=== PATIENT | male | born 1945 | race Caucasian/White ===

== ENCOUNTER 2017-08-21 10:23 | Inpatient (IN) | payer OTHER ==
[~2017-08-21] VITALS: Ht 167.6 cm; Wt 62.2 kg
[~2017-08-21 10:23] MED LIST: LEVE100S10 PO
[2017-08-21] MEDS ORDERED: ALBUT/IPRATROP 3MG/0.5MG NEB 3 ML VIAL INH STA (10:50)
[2017-08-21] MEDS ORDERED: SODIUM CHLORIDE 0.9% 500ML 500 ML IV STA ×2 (10:50→11:58)
[2017-08-21] MEDS ORDERED: PIPERACILLIN/TAZOBACTAM 4.5 GM/100ML D5W IV STA (10:50)
[2017-08-21] MEDS ORDERED: DEXTCAP23 PO (11:00)
--- NOTE | 2017-08-21 11:39 | DIAGNOSTIC IMAGING REPORT ---
CHEST ONE VIEW PORTABLE CLINICAL HISTORY: EVALUATE RESPIRATORY DISTRESS.DYSPNEA dyspnea COMPARISON STUDY: 04/11/2016 FINDINGS: Interval development of bibasilar parenchymal infiltrates. Moderate increase in cardiac size. A component of congestive failure may be present. Upper lungs are clear. Baseline emphysematous changes similar. IMPRESSION: Bibasilar parenchymal infiltrates versus components of congestive failure The above report was generated using voice recognition software. It may contain grammatical, syntax or spelling errors. Electronically signed by: Sedrick Thomas M.D. 08/21/2017 11:37 AM Dictated Date/Time: 08/21/2017 11:36 AM
[2017-08-21 11:42] LABS: BASO % 0.1 %; BASO ABS # 0.01 K/uL (0-0.2); HEMATOCRIT 43.7 % (42-52); HEMOGLOBIN 14.9 g/dL (14.0-18.0); IG# 0.02 K/uL (0.00-0.02); LYMPH % 8.2 %; LYMPH ABS # 0.79 K/uL (1.2-3.4); MEAN CELL VOLUME 89.5 fL (80-100); MEAN CORPUSCULAR HEMOGLOBIN 30.5 pg (25-34); MEAN CORPUSCULAR HGB CONC 34.1 g/dl (32-36); MEAN PLATELET VOLUME 10.3 fL (7.4-10.4); MONO % 7.8 %; MONO ABS # 0.75 K/uL (0.11-0.59); NEUT % 83.7 %; NEUT ABS # 8.08 K/uL (1.4-6.5); PLATELET COUNT 166 K/uL (130-400); RED CELL DISTRIBUTION WIDTH CV 13.5 % (11.5-14.5); RED CELL DISTRIBUTION WIDTH SD 44.1 fL (36.4-46.3); WHITE BLOOD COUNT 9.65 K/uL (4.8-10.8)
[2017-08-21 11:49] LABS: PTT PATIENT 24.8 SECONDS (21.0-31.0)
[2017-08-21 11:52] LABS: CREATININE 1.2 mg/dl (0.60-1.40)
[2017-08-21 11:53] LABS: ALBUMIN 3.5 gm/dl (3.4-5.0); CALCIUM 8.5 mg/dl (8.5-10.1); POTASSIUM 5.1 mmol/L (3.5-5.1)
[2017-08-21 12:15] LABS: TOTAL PROTEIN 7.4 gm/dl (6.4-8.2)
[2017-08-21] MEDS ORDERED: OPTIRAY 320 IV PRN (12:15)
[2017-08-21 12:31] LABS: INFLUENZA A PCR Neg for Influ A (NEG); INFLUENZA B PCR Neg for Influ B (NEG)
--- NOTE | 2017-08-21 12:52 | DIAGNOSTIC IMAGING REPORT ---
(CHEST FOR PE) ANGIO WITH CT DOSE: 574.33 mGy.cm HISTORY: Chest pain dyspnea TECHNIQUE: Multiaxial CT images of the chest were performed following the intravenous administration of contrast to evaluate the pulmonary arteries. Maximal intensity projection images were also obtained. A dose lowering technique was utilized adhering to the principles of ALARA. COMPARISON STUDY: None. FINDINGS: Thoracic aorta is unremarkable in overall caliber. Pulmonary arterial vasculature enhances appropriately. There are bilateral pleural effusions. Pulmonary vasculature is prominent. There are findings of mild bibasilar atelectatic change. IMPRESSION: 1. Study is negative for pulmonary most. 2. Cardiomegaly with bilateral pleural effusions. 3. The appearance is consistent with that of congestive failure The above report was generated using voice recognition software. It may contain grammatical, syntax or spelling errors. Electronically signed by: Sedrick Thomas M.D. 08/21/2017 12:51 PM Dictated Date/Time: 08/21/2017 12:49 PM
[2017-08-21] MEDS ORDERED: METHYLPREDNISOLONE 125 MG VIAL IV STA (13:05)
[2017-08-21] MEDS ORDERED: NITROGLYCERIN 2% OINTMENT 30GM TUBE EXT ONE (13:15)
--- NOTE | 2017-08-21 13:43 | EMERGENCY ROOM VISIT NOTE ---
History Report prepared by Nelsy: Daryl Phillips Under the Supervision of: Dr. Calixto Black M.D. First contact with patient: 10:48 Chief Complaint: SHORTNESS OF BREATH Stated Complaint: COUGH,SOB,CAN'T BREATHE RIGHT History of Present Illness The patient is a 72 year old male who presents to the Emergency Room with complaints of constant shortness of breath beginning last night. The patient's brother states the patient developed a chest cold last evening. The brother notes the patient's shortness of breath worsens upon exertion. He states he gave the patient medication for his cough earlier, but it did not help. The brother reports the patient is more fatigued than normal and will fall asleep very quickly. He notes the patient also has swelling in his legs. The brother states the patient has a history of a seizure two years ago and will occasionally drool. He reports the patient has also been more fatigued. The brother notes the patient is very active at home. He denies discomfort when asked, vomiting, urinary symptoms, a history of lung disease, a history of blood clots in the legs or lungs, wearing oxygen at home at home, being exposed to other sick people, and taking daily medication. The brother states the patient does not have a PCP. The history was obtained by the patient's brother because the patient has mild MR. Source of History: family (brother) Onset: last night Quality: other (SOB) Timing: constant Modifying Factors (Worsening): exertion Associated Symptoms: + cough, + fatigue, No vomiting, No urinary symptoms Note: Associated symptoms: swelling in legs Review of Systems See HPI for pertinent positives & negatives. A total of 10 systems reviewed and were otherwise negative. Past Medical & Surgical Medical Problems: (1) CHF (congestive heart failure) (2) Mental retardation (3) Seizure Family History Patient reports no known family medical history. Social History Smoking Status: Never Smoker Drug Use: none Marital Status: single Housing Status: lives with family Occupation Status: disabled Current/Historical Medications Scheduled PRN Dextromethorphan-Guaifenesin (Coricidin Hbp Chest Conge), 1 CAP PO UD PRN for CONGESTION Allergies Coded Allergies: No Known Allergies (Unverified , 08/21/17) Physical Exam Vital Signs Date Time Temp Pulse Resp B/P (MAP) Pulse Ox O2 Delivery O2 Flow Rate FiO2 08/21/17 16:12 91 22 136/94 97 Room Air 08/21/17 15:00 86 22 148/94 97 Room Air 08/21/17 14:11 102 23 92 Nasal Cannula 2.0 08/21/17 14:01 133/95 08/21/17 13:41 97 18 96 Nasal Cannula 2.0 08/21/17 13:36 96 22 96 Nasal Cannula 2.0 08/21/17 13:31 135/107 08/21/17 13:26 99 20 96 08/21/17 13:01 143/101 08/21/17 12:56 95 20 95 08/21/17 12:51 156/103 08/21/17 12:06 91 15 99 Nasal Cannula 2.0 08/21/17 12:01 134/101 08/21/17 11:53 93 16 100 08/21/17 11:35 146/94 08/21/17 11:23 119 24 83 08/21/17 11:23 93 Nasal Cannula 2.0 08/21/17 11:10 98 Room Air 08/21/17 10:53 113 28 99 08/21/17 10:45 109 08/21/17 10:28 36.4 97 20 120/81 98 Room Air Physical Exam GENERAL: Patient is in no acute distress. HEENT: No acute trauma, normocephalic atraumatic, mucous membranes moist, no nasal congestion, no scleral icterus. NECK: No stridor, no adenopathy, no meningismus, trachea is midline. LUNGS: Slight wheezing heard. Decreased breath sounds on the right. No respiratory distress. HEART: 3/6 systolic murmur with mild tachycardia. Somewhat Irregular rhythm. ABDOMEN: Soft but distended. Large ventral hernia that is non-tender. No peritonitis. EXTREMITIES: No cyanosis. Moderate bilateral pitting edema, full range of motion of all the joints without pain or difficulty, no signs for acute trauma. 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 Does move all extremities. Cooperative on exam. SKIN: No rash, no jaundice, no diaphoresis. Medical Decision & Procedures ER Provider Diagnostic Interpretation: Radiology results as stated below per my review and radiologist interpretation: CHEST ONE VIEW PORTABLE CLINICAL HISTORY: EVALUATE RESPIRATORY DISTRESS.DYSPNEA dyspnea COMPARISON STUDY: 04/11/2016 FINDINGS: Interval development of bibasilar parenchymal infiltrates. Moderate increase in cardiac size. A component of congestive failure may be present. Upper lungs are clear. Baseline emphysematous changes similar. IMPRESSION: Bibasilar parenchymal infiltrates versus components of congestive failure The above report was generated using voice recognition software. It may contain grammatical, syntax or spelling errors. Electronically signed by: Sedrick Thomas M.D. 08/21/2017 11:37 AM Dictated Date/Time: 08/21/2017 11:36 AM (CHEST FOR PE) ANGIO WITH CT DOSE: 574.33 mGy.cm HISTORY: Chest pain dyspnea TECHNIQUE: Multiaxial CT images of the chest were performed following the intravenous administration of contrast to evaluate the pulmonary arteries. Maximal intensity projection images were also obtained. A dose lowering technique was utilized adhering to the principles of ALARA. COMPARISON STUDY: None. FINDINGS: Thoracic aorta is unremarkable in overall caliber. Pulmonary arterial vasculature enhances appropriately. There are bilateral pleural effusions. Pulmonary vasculature is prominent. There are findings of mild bibasilar atelectatic change. IMPRESSION: 1. Study is negative for pulmonary most. 2. Cardiomegaly with bilateral pleural effusions. 3. The appearance is consistent with that of congestive failure The above report was generated using voice recognition software. It may contain grammatical, syntax or spelling errors. Electronically signed by: Sedrick Thomas M.D. 08/21/2017 12:51 PM Dictated Date/Time: 08/21/2017 12:49 PM Laboratory Results 08/21/17 11:10 Red Blood Count 4.88, Mean Corpuscular Volume 89.5, Mean Corpuscular Hemoglobin 30.5, Mean Corpuscular Hemoglobin Concent 34.1, Mean Platelet Volume 10.3, Neutrophils (%) (Auto) 83.7, Lymphocytes (%) (Auto) 8.2, Monocytes (%) (Auto) 7.8, Eosinophils (%) (Auto) 0.0, Basophils (%) (Auto) 0.1, Neutrophils # (Auto) 8.08, Lymphocytes # (Auto) 0.79, Monocytes # (Auto) 0.75, Eosinophils # (Auto) 0.00, Basophils # (Auto) 0.01 08/21/17 14:46 Test 08/21/17 11:10 08/21/17 11:36 08/21/17 11:45 08/21/17 14:05 White Blood Count 9.65 K/uL (4.8-10.8) Red Blood Count 4.88 M/uL (4.7-6.1) Hemoglobin 14.9 g/dL (14.0-18.0) Hematocrit 43.7 % (42-52) Mean Corpuscular Volume 89.5 fL (80-100) Mean Corpuscular Hemoglobin 30.5 pg (25-34) Mean Corpuscular Hemoglobin Concent 34.1 g/dl (32-36) Platelet Count 166 K/uL (130-400) Mean Platelet Volume 10.3 fL (7.4-10.4) Neutrophils (%) (Auto) 83.7 % Lymphocytes (%) (Auto) 8.2 % Monocytes (%) (Auto) 7.8 % Eosinophils (%) (Auto) 0.0 % Basophils (%) (Auto) 0.1 % Neutrophils # (Auto) 8.08 K/uL (1.4-6.5) Lymphocytes # (Auto) 0.79 K/uL (1.2-3.4) Monocytes # (Auto) 0.75 K/uL (0.11-0.59) Eosinophils # (Auto) 0.00 K/uL (0-0.5) Basophils # (Auto) 0.01 K/uL (0-0.2) RDW Standard Deviation 44.1 fL (36.4-46.3) RDW Coefficient of Variation 13.5 % (11.5-14.5) Immature Granulocyte % (Auto) 0.2 % Immature Granulocyte # (Auto) 0.02 K/uL (0.00-0.02) Prothrombin Time 11.0 SECONDS (9.0-12.0) Prothromb Time International Ratio 1.0 (0.9-1.1) Activated Partial Thromboplast Time 24.8 SECONDS (21.0-31.0) Partial Thromboplastin Ratio 1.0 Lactic Acid Level 3.7 mmol/L (0.4-2.0) Magnesium Level 2.2 mg/dl (1.8-2.4) Total Bilirubin 1.8 mg/dl (0.2-1) Aspartate Amino Transf (AST/SGOT) 70 U/L (15-37) Alanine Aminotransferase (ALT/SGPT) 83 U/L (12-78) Alkaline Phosphatase 180 U/L (45-117) Troponin I 0.034 ng/ml (0-0.045) Pro-B-Type Natriuretic Peptide 53285 pg/ml (0-900) Total Protein 7.4 gm/dl (6.4-8.2) Albumin 3.5 gm/dl (3.4-5.0) Globulin 3.9 gm/dl (2.5-4.0) Albumin/Globulin Ratio 0.9 (0.9-2) Thyroid Stimulating Hormone (TSH) 1.650 uIu/ml (0.300-4.500) Free Thyroxine 1.49 ng/dl (0.80-1.60) Chemistry Specimen Hemolysis Influenza Type A (RT-PCR) Neg for Influ A (NEG) Influenza Type B (RT-PCR) Neg for Influ B (NEG) Urine Color DK YELLOW Urine Appearance CLEAR (CLEAR) Urine pH 5.0 (4.5-7.5) Urine Specific [place] 1.026 (1.000-1.030) Urine Protein 1+ (NEG) Urine Glucose (UA) TRACE (NEG) Urine Ketones NEG (NEG) Urine Occult Blood NEG (NEG) Urine Nitrite NEG (NEG) Urine Bilirubin NEG (NEG) Urine Urobilinogen NEG (NEG) Urine Leukocyte Esterase NEG (NEG) Urine WBC (Auto) 1-5 /hpf (0-5) Urine RBC (Auto) 0-4 /hpf (0-4) Urine Hyaline Casts (Auto) 1-5 /lpf (0-5) Urine Epithelial Cells (Auto) 10-20 /lpf (0-5) Urine Bacteria (Auto) NEG (NEG) Test 08/21/17 14:46 08/21/17 14:50 Anion Gap 7.0 mmol/L (3-11) Est Creatinine Clear Calc Drug Dose 47.6 ml/min Estimated GFR () 70.3 Estimated GFR (Non- 60.7 BUN/Creatinine Ratio 14.9 (10-20) Osmolality 277 mOsm/kg (280-300) Calcium Level 8.0 mg/dl (8.5-10.1) Ammonia < 10.0 umol/L (11-32) Laboratory results reviewed by me. Medications Administered Medications (Trade) Dose Ordered Sig/Landy Route Start Time Stop Time Status Last Admin Dose Admin Albuterol/ Ipratropium (Duoneb) 3 ml NOW STAT INH 08/21/17 10:50 08/21/17 10:57 DC 08/21/17 11:11 3 ML Sodium Chloride 500 ml @ 999 mls/hr Q31M STAT IV 08/21/17 10:50 08/21/17 11:20 DC 08/21/17 11:17 999 MLS/HR Piperacillin Sod/ Tazobactam Sod (Zosyn Iv) 4.5 gm NOW STAT IV 08/21/17 10:50 08/21/17 10:57 DC 08/21/17 11:37 4.5 GM Sodium Chloride 500 ml @ 999 mls/hr Q31M STAT IV 08/21/17 11:58 08/21/17 12:28 DC 08/21/17 12:11 999 MLS/HR Methylprednisolone Sodium Succinate (Solu-Medrol IV) 125 mg NOW STAT IV 08/21/17 13:05 08/21/17 13:06 DC 08/21/17 13:24 125 MG Nitroglycerin (Nitroglycerin 2% Oint) 1 inch NOW ONCE EXT 08/21/17 13:15 08/21/17 13:16 DC 08/21/17 13:23 1 INCH Furosemide (Lasix Inj) 40 mg NOW STAT IV 08/21/17 13:47 08/21/17 13:48 DC 08/21/17 13:52 40 MG ECG Per My Interpretation Indication: SOB/dyspnea Rate (beats per minute): 100 Rhythm: atrial fibrillation Findings: PVC, RBBB (incomplete), other (No ST elevation. Nonspecific ST flattening diffusely.) Comparison ECG Date: 04/11/16 Change: Atrial fibrillation is new. ED Course 1048: The patient was evaluated in room C03. A complete history and physical exam was performed. 1050: Ordered Zosyn 4.5gm IV, Sodium Chloride 500 ml @ 999 mls/hr IV, Albuterol/ Ipratropium 3ml INH 1158: Ordered Sodium Chloride 500 ml @ 999 mls/hr IV 1203: I reevaluated the patient and updated the family about the patient's current results. I discussed the need evaluation by the hospitalist. The family agreed with the treatment plan and verbalized understanding. 1247: I discussed the patient's case with Dr. Gregory, [facility] Hospitalist. The patient will be evaluated for further management and care. 1303: I reevaluated the patient. He is still feeling well but still wheezing. 1305: Ordered Solu-Medrol 125 mg IV 1315: Ordered Nitroglycerin 1in EXT 1347: Ordered Furosemide 40mg IV 1402: Further discussion was made with Dr. Gregory about the patient's case. He requested I order an ammonia level. Medical Decision The patient is a 72 year old male who presents to the ED with complaints of shortness of breath. Differential diagnoses considered include sepsis or bacteremia, pneumonia or influenza, CHF, anemia, bronchitis, liver or renal failure, DVT or PE, electrolyte imbalance. There is no leukocytosis or concerning anemia. Renal panel testing shows a low sodium at 125. No kidney failure. No evidence for urine infection by our testing, blood cultures are pending. Chest film shows what looks to be possibly atelectasis or pneumonia at the bases, no pneumothorax. EKG shows A. fib, this is a new finding for the patient. No acute ischemic change. Cardiac enzyme testing 1 is not consistent with acute cardiac injury. Lactic acid level was elevated at 3.7, this could be consistent with infection/sepsis. There were some liver enzyme elevations. A chest CT was done, there was no PE, there was some atelectasis and some pleural fluid noted. BNP was elevated consistent with fluid overload. Influenza testing was negative. The patient presents with a change in mental status and cough. I was concerned for sepsis. He received IV Zosyn, he was given IV saline. Once the findings of potential fluid overload were noted, the patient was given Nitropaste and IV Lasix. He received a DuoNeb because of the wheezing, he received IV Solu- Medrol. The patient requires a hospital stay. He appears to be in A. fib which is new, he may have pneumonia or bronchitis. He does appear to be fluid overloaded. He has had a change in mental status, his lactic acid is elevated. Further care and workup is warranted. I spoke to the patient's brother, I talked with case management. The on-call hospitalist was consulted. Medication Reconcilliation Current Medication List: was personally reviewed by me Blood Pressure Screening Patient's blood pressure: Elevated blood pressure Monitored by hospitalist. Consults Time Called: 1204 Consulting Physician: Dr. Gregory, [facility] Hospitalist Returned Call: [phone] I discussed the patient's case with Dr. Gregory [facility] Hospitalist. The patient will be evaluated for further management and care. 1402: Further discussion was made with Dr. Gregory about the patient's case. He requested I order an ammonia level. Impression Primary Impression: Pneumonia Additional Impressions: Change in mental status A-fib Pleural effusion Hyponatremia Critical Care I have personally spent greater than 35 minutes of critical care time in the direct management of this patient. This includes bedside care, interpretation of diagnostic studies, and testing, discussion with consultants, patient, and family members, and other required patient management activities. This 35 minutes is in excess of all separately billable procedures. Scribe Attestation The scribe's documentation has been prepared under my direction and personally reviewed by me in its entirety. I confirm that the note above accurately reflects all work, treatment, procedures, and medical decision making performed by me. Departure Information Dispostion Being Evaluated By Hospitalist Referrals No Doctor, Assigned (PCP) Patient Instructions My [facility] Problem Qualifiers
[2017-08-21] MEDS ORDERED: FUROSEMIDE 40 MG/4 ML VIAL IV STA (13:47)
[2017-08-21] MEDS ORDERED: METOPROLOL TARTRATE 1 MG/ML VIAL IV PRN (14:30)
[2017-08-21] MEDS ORDERED: NITROGLYCERIN 0.4 MG SL PER TAB CHARGE SL PRN (14:30)
[2017-08-21] MEDS ORDERED: ACETAMINOPHEN 325 MG TAB PO PRN (14:30)
[2017-08-21] MEDS ORDERED: ONDANSETRON INJ 2 MG/ML 2 ML VIAL IV PRN (14:30)
[2017-08-21] MEDS ORDERED: ALUMINUM/MAGNESIUM/SIMETH (MAALOX MAX) 30 ML UDC PO PRN (14:30)
[2017-08-21] MEDS ORDERED: HydrALAZINE HCL 20 MG/ML VIAL IV. PRN (14:30)
[2017-08-21] MEDS ORDERED: MoRPHine SULFATE 2 MG/ML CARP IV PRN (14:30)
[2017-08-21] MEDS ORDERED: MAGNESIUM HYDROXIDE SUSP 30 ML UDC PO PRN (14:30)
[2017-08-21] MEDS ORDERED: ALBUT/IPRATROP 3MG/0.5MG NEB 3 ML VIAL INH PRN (14:30)
[2017-08-21] MEDS ORDERED: POLYETHYLENE (MIRALAX) 17 GM PACK PO PRN (14:30)
--- NOTE | 2017-08-21 14:56 | History and Physical ---
History & Physical Date & Time of Service: Aug 21, 2017 at 14:32 Chief Complaint: Cough,Sob,Can't Breathe Right Primary Care Physician: No Doctor, Assigned History of Present Illness Source: patient, family (brotherTerrell- over phone), clinic records, hospital records Patient is a pleasant, legally blind, 72 y/o male, with PMHx of MR and seizure disorder, currently on no medications, who presented to the ED because of SOB x1 day. Patient is currently lying in bed and states he feels better. No history obtained from patient. Called brotherTerrell- patient has been experiencing SOB, fatigue, and BLE swelling since last evening. Patient lives w / him and his - last BM was this AM. In ED, patient was found to be fluid overloaded on CT and CXR. IV Lasix 40 mg x1 was given- however, patient was also give IVF bolus x2. He was found to be in a.fib- new per brother. He currently does not have a PCP. ROS cannot be obtained from patient. Past Medical/Surgical History Medical Problems: MR h/o seizure disorder blind Family History Patient reports no known family medical history. Social History Smoking Status: Never Smoker Drug Use: none Marital Status: single Housing status: lives with family Occupational Status: disabled Allergies Coded Allergies: No Known Allergies (Unverified , 08/21/17) Home Medications Scheduled PRN Dextromethorphan-Guaifenesin (Coricidin Hbp Chest Conge), 1 CAP PO UD PRN for CONGESTION Physical Exam Vital Signs Date Time Temp Pulse Resp B/P (MAP) Pulse Ox O2 Delivery O2 Flow Rate FiO2 08/21/17 14:11 102 23 92 Nasal Cannula 2.0 08/21/17 14:01 133/95 08/21/17 13:41 97 18 96 Nasal Cannula 2.0 08/21/17 13:36 96 22 96 Nasal Cannula 2.0 08/21/17 13:31 135/107 08/21/17 13:26 99 20 96 08/21/17 13:01 143/101 08/21/17 12:56 95 20 95 08/21/17 12:51 156/103 08/21/17 12:06 91 15 99 Nasal Cannula 2.0 08/21/17 12:01 134/101 08/21/17 11:53 93 16 100 08/21/17 11:35 146/94 08/21/17 11:23 119 24 83 08/21/17 11:23 93 Nasal Cannula 2.0 08/21/17 11:10 98 Room Air 08/21/17 10:53 113 28 99 08/21/17 10:45 109 08/21/17 10:28 36.4 97 20 120/81 98 Room Air General Appearance: no apparent distress, + pertinent finding (O2 NC) Head: normocephalic, atraumatic Eyes: + pertinent finding (blind) ENT: hearing grossly normal, + pertinent finding (poor dentition) Neck: supple Respiratory/Chest: no respiratory distress, no accessory muscle use, + crackles (bilateral lung bases to mid lung zones), + wheezing (slight expiratory wheeze throughout) Cardiovascular: + irregularly irregular (rate controlled) Abdomen/GI: normal bowel sounds, non tender, + distended Back: normal inspection Extremities/Musculoskelatal: no calf tenderness, + swelling (+3 pitting edema of bilateral lower extremities) Neurologic/Psych: alert, + disoriented Skin: normal color, warm/dry, no rash Diagnostics Laboratory Results Results Past 24 Hours Test 08/21/17 11:10 08/21/17 11:36 08/21/17 11:45 08/21/17 14:04 Range/Units White Blood Count 9.65 4.8-10.8 K/uL Red Blood Count 4.88 4.7-6.1 M/uL Hemoglobin 14.9 14.0-18.0 g/dL Hematocrit 43.7 42-52 % Mean Corpuscular Volume 89.5 80-100 fL Mean Corpuscular Hemoglobin 30.5 25-34 pg Mean Corpuscular Hemoglobin Concent 34.1 32-36 g/dl Platelet Count 166 130-400 K/uL Mean Platelet Volume 10.3 7.4-10.4 fL Neutrophils (%) (Auto) 83.7 % Lymphocytes (%) (Auto) 8.2 % Monocytes (%) (Auto) 7.8 % Eosinophils (%) (Auto) 0.0 % Basophils (%) (Auto) 0.1 % Neutrophils # (Auto) 8.08 1.4-6.5 K/uL Lymphocytes # (Auto) 0.79 1.2-3.4 K/uL Monocytes # (Auto) 0.75 0.11-0.59 K/uL Eosinophils # (Auto) 0.00 0-0.5 K/uL Basophils # (Auto) 0.01 0-0.2 K/uL RDW Standard Deviation 44.1 36.4-46.3 fL RDW Coefficient of Variation 13.5 11.5-14.5 % Immature Granulocyte % (Auto) 0.2 % Immature Granulocyte # (Auto) 0.02 0.00-0.02 K/uL Prothrombin Time 11.0 9.0-12.0 SECONDS Prothromb Time International Ratio 1.0 0.9-1.1 Activated Partial Thromboplast Time 24.8 21.0-31.0 SECONDS Partial Thromboplastin Ratio 1.0 Sodium Level 125 136-145 mmol/L Potassium Level 5.1 3.5-5.1 mmol/L Chloride Level 92 98-107 mmol/L Carbon Dioxide Level 26 21-32 mmol/L Anion Gap 7.0 3-11 mmol/L Blood Urea Nitrogen 19 7-18 mg/dl Creatinine 1.20 0.60-1.40 mg/dl Est Creatinine Clear Calc Drug Dose 47.2 ml/min Estimated GFR () 69.6 Estimated GFR (Non- 60.1 BUN/Creatinine Ratio 16.1 10-20 Random Glucose 166 70-99 mg/dl Lactic Acid Level 3.7 0.4-2.0 mmol/L Calcium Level 8.5 8.5-10.1 mg/dl Magnesium Level 2.2 1.8-2.4 mg/dl Total Bilirubin 1.8 0.2-1 mg/dl Aspartate Amino Transf (AST/SGOT) 70 15-37 U/L Alanine Aminotransferase (ALT/SGPT) 83 12-78 U/L Alkaline Phosphatase 180 45-117 U/L Troponin I 0.034 0-0.045 ng/ml Pro-B-Type Natriuretic Peptide 67476 0-900 pg/ml Total Protein 7.4 6.4-8.2 gm/dl Albumin 3.5 3.4-5.0 gm/dl Globulin 3.9 2.5-4.0 gm/dl Albumin/Globulin Ratio 0.9 0.9-2 Thyroid Stimulating Hormone (TSH) 1.650 0.300-4.500 uIu/ml Free Thyroxine 1.49 0.80-1.60 ng/dl Chemistry Specimen Hemolysis Influenza Type A (RT-PCR) Neg for Influ A NEG Influenza Type B (RT-PCR) Neg for Influ B NEG Urine Color DK YELLOW Urine Appearance CLEAR CLEAR Urine pH 5.0 4.5-7.5 Urine Specific [place] 1.026 1.000-1.030 Urine Protein 1+ NEG Urine Glucose (UA) TRACE NEG Urine Ketones NEG NEG Urine Occult Blood NEG NEG Urine Nitrite NEG NEG Urine Bilirubin NEG NEG Urine Urobilinogen NEG NEG Urine Leukocyte Esterase NEG NEG Urine WBC (Auto) 1-5 0-5 /hpf Urine RBC (Auto) 0-4 0-4 /hpf Urine Hyaline Casts (Auto) 1-5 0-5 /lpf Urine Epithelial Cells (Auto) 10-20 0-5 /lpf Urine Bacteria (Auto) NEG NEG Test 08/21/17 14:05 Range/Units Microbiology Results 08/21/17 Blood Culture, Received Pending 08/21/17 Blood Culture, Received Pending Diagnostic Radiology (CHEST FOR PE) ANGIO WITH CT DOSE: 574.33 mGy.cm HISTORY: Chest pain dyspnea TECHNIQUE: Multiaxial CT images of the chest were performed following the intravenous administration of contrast to evaluate the pulmonary arteries. Maximal intensity projection images were also obtained. A dose lowering technique was utilized adhering to the principles of ALARA. COMPARISON STUDY: None. FINDINGS: Thoracic aorta is unremarkable in overall caliber. Pulmonary arterial vasculature enhances appropriately. There are bilateral pleural effusions. Pulmonary vasculature is prominent. There are findings of mild bibasilar atelectatic change. IMPRESSION: 1. Study is negative for pulmonary most. 2. Cardiomegaly with bilateral pleural effusions. 3. The appearance is consistent with that of congestive failure The above report was generated using voice recognition software. It may contain grammatical, syntax or spelling errors. Electronically signed by: Sedrick Thomas M.D. 08/21/2017 12:51 PM Dictated Date/Time: 08/21/2017 12:49 PM The status of this report is Signed. Draft = Not yet reviewed or approved by Radiologist. Signed = Reviewed and approved by Radiologist CHEST ONE VIEW PORTABLE CLINICAL HISTORY: EVALUATE RESPIRATORY DISTRESS.DYSPNEA dyspnea COMPARISON STUDY: 04/11/2016 FINDINGS: Interval development of bibasilar parenchymal infiltrates. Moderate increase in cardiac size. A component of congestive failure may be present. Upper lungs are clear. Baseline emphysematous changes similar. IMPRESSION: Bibasilar parenchymal infiltrates versus components of congestive failure The above report was generated using voice recognition software. It may contain grammatical, syntax or spelling errors. Electronically signed by: Sedrick Thomas M.D. 08/21/2017 11:37 AM Dictated Date/Time: 08/21/2017 11:36 AM The status of this report is Signed. Draft = Not yet reviewed or approved by Radiologist. Signed = Reviewed and approved by Radiologist EKG GARIMA LUIS ID:[id number] 21-AUG-2017 11:01:26 [facility] Poor data quality, interpretation may be adversely affected Atrial fibrillation Incomplete right bundle branch block Right ventricular hypertrophy with repolarization abnormality Septal infarct , age undetermined Abnormal ECG When compared with ECG of 11-APR-2016 18:23, Significant changes have occurred 25mm/s 10mm/mV 150Hz 8.0 SP2 12SL 241 DEMETRI: 13 Referred by: Referred Self Unconfirmed Vent. rate 96 BPM WA interval * ms QRS duration 118 ms QT/QTc 392/495 ms P-R-T axes * 108 22 1945 (72 yr) Male 0lb Room:[facility] [place] Loc:[address] Office Assistant:Jan Cronin ind: Impression Assessment and Plan Patient is a pleasant, legally blind, 72 y/o male, with PMHx of MR and seizure disorder, currently on no medications, who presented to the ED because of SOB x1 day. Acute respiratory failure w/ hypoxia, likely secondary to CHF- unknown type at this time, new onset a.fib: - Admit to tele for cardiac monitoring - Trend cardiac enzymes - O2 protocol- NOT on O2 supplement at home - DuoNebs PRN for sob/wheezing - Nitro and IV Morphine PRN for chest pain - Elevated BNP at 10,000 - Elevated lactic acid- repeat q6 hrs- UA negative, CXR and CT negative for infectious findings, BCx pending - Obtain ECHO - IV Lasix 40 mg given in ED; will continue IV Lasix 20 mg BID - Monitor I&Os and daily weights - Obtain head CT due to confusion and fall risk- if no bleeding then can start IV Heparin gtt for a.fib - IV Metoprolol PRN for HR >120 - TSH WNL - Consult cardiology, appreciate recommendation - Follow PRP and CBC Hyponatremia, ?secondary to CHF: - IV Lasix as above - AM cortisol, urine sodium, urine potassium, urine/serum osmolality pending Elevated LFTs, ?secondary to CHF vs gallbladder disease: - Follow LFTs - Check ammonia level - Obtain RUQ U/S MR: Aspiration precautions- mechanical soft per brother h/o seizure disorder- noted- currently on no medications DVT prophylaxis: TEDs/SCDs; chemical anticoagulation as noted above Code status: LEVEL I, FULL- discussed w/ brother Dispo: From home, lives w/ brother and [id number]- PT/OT and CM consulted Brother worried about medical cost and request CM to discuss w/ home I personally interviewed and examined the patient. I agree with history of present illness and physical exam mentioned above, I also performed my own history taking and examination. Past medical history and review of system has been obtained by myself I reviewed all pertinent labs and studies Reviewed current medications I discussed and formulated of the assessment and plan mentioned above. Please refer to the Summary mentioned below. 72-year-old man visually challenged presented to the ED with hypoxemia acute respiratory failure secondary to unspecified congestive heart failure: New onset atrial fibrillation Started on gentle diuresis, 2D echo ordered, head CT ordered is negative patient can be started on heparin drip, PT OT ordered to specify his basic liver function and with that he is fall risk. Calculated I/Os General Appearance: not in acute distress Eyes: normal Sclerae, bilateral blindness//fibrosis is clear cornea ENT: hearing grossly normal Neck: supple Respiratory/Chest: normal air entry bilateral ,no respiratory distress, no accessory muscle use Cardiovascular: Irregularly irregular, soft systolic murmur Abdomen: non tender, soft, no masses Extremities: no edema musculoskeletal: no significant swelling or inflammation in any joint Neurologic/Psychiatric: Awake alert fluid simple command moves all extremities sensation intact , aside from the blindness cranial nerves 3-12 appear to be intact Skin: normal color, warm/dry, no rash Vinny Garcia MD, [facility] hospitalist group Resuscitation Status LEVEL I, FULL VTE Prophylaxis Will order VTE Prophylaxis: Yes
[2017-08-21 15:16] LABS: CREATININE 1.19 mg/dl (0.60-1.40); POTASSIUM 4.9 mmol/L (3.5-5.1)
--- NOTE | 2017-08-21 16:01 | DIAGNOSTIC IMAGING REPORT ---
GALLBLADDER-ABD LIMITED CLINICAL HISTORY: elevated lfts Limited liver function tests TECHNIQUE: Ultrasound COMPARISON STUDY: None FINDINGS: Pancreas is poorly seen due to overlying bowel content. Mild fatty infiltration of liver. Small amount of gallbladder sludge. No shadowing gallstones. Common bile duct 3 mm. Right kidney is negative for hydronephrosis. Trace perinephric fluid. IMPRESSION: 1. Small amount of sludge within the gallbladder lumen. 2. Normal caliber bile ducts. 3. Fatty infiltration of liver. 4. Trace right renal perinephric fluid The above report was generated using voice recognition software. It may contain grammatical, syntax or spelling errors. Electronically signed by: Sedrick Thomas M.D. 08/21/2017 4:00 PM Dictated Date/Time: 08/21/2017 3:58 PM
[2017-08-21 16:57] VITALS: BP 142/76; PULSE 76; TEMP 36.6; O2SAT 95; Ht 167.6 cm; Wt 62.2 kg
[2017-08-21 18:08] LABS: POTASSIUM RANDOM URINE 103.3 mEq/L
[2017-08-21 19:43] LABS: CKMB 6.7 ng/ml (0.5-3.6)
[2017-08-21 19:44] VITALS: BP 126/84; PULSE 95; TEMP 36.5; O2SAT 96
[2017-08-21 20:00] VITALS: O2SAT 96
--- NOTE | 2017-08-21 21:38 | DIAGNOSTIC IMAGING REPORT ---
HEAD WITHOUT CONTRAST (CT) CT DOSE: 614.27 mGy.cm HISTORY: Mental status change fatigue, confusion TECHNIQUE: Multiaxial CT images of the head were performed without the use of intravenous contrast. A dose lowering technique was utilized adhering to the principles of ALARA. Comparison: 04/11/2016 Findings: The paranasal sinuses and mastoid air cells are clear. The calvarium and skull base are intact. The ventricles and sulci are within normal limits. There is no mass, hematoma, midline shift, or acute infarct. Chronic calcification of the globes. Mild chronic calcification of the tentorium. Impression: No acute process. Chronic change. The above report was generated using voice recognition software. It may contain grammatical, syntax or spelling errors. Electronically signed by: Sedrick Thomas M.D. 08/21/2017 9:37 PM Dictated Date/Time: 08/21/2017 9:35 PM
[2017-08-21] MEDS: FUROSEMIDE INJ 20 MG in SYRINGE 0 ML IV SCH (21:51)
[2017-08-21] MEDS ORDERED: NURSING VERBAL MED ORDER ONE (22:15)
[2017-08-21 22:52] LABS: CREATININE 1.08 mg/dl (0.60-1.40)
[2017-08-21 23:50] VITALS: BP 121/77; PULSE 81; TEMP 36.6; O2SAT 93
[2017-08-21 23:59] VITALS: O2SAT 96
[2017-08-22] VITALS (8 sets, daily range): BP systolic 104–126; BP diastolic 65–78; PULSE 68–93; TEMP 36.2–36.8; O2SAT 91–96
[2017-08-22] MEDS: HEPARIN 25,000 UNIT/500ML D5W 500 ML IV SCH ×2 (01:05→15:34)
[2017-08-22 03:06] LABS: HEMATOCRIT 40.6 % (42-52); HEMOGLOBIN 14.1 g/dL (14.0-18.0); IG# 0.02 K/uL (0.00-0.02); LYMPH % 6.4 %; LYMPH ABS # 0.59 K/uL (1.2-3.4); MEAN CELL VOLUME 87.5 fL (80-100); MEAN CORPUSCULAR HEMOGLOBIN 30.4 pg (25-34); MEAN CORPUSCULAR HGB CONC 34.7 g/dl (32-36); MEAN PLATELET VOLUME 10.9 fL (7.4-10.4); MONO % 8.8 %; MONO ABS # 0.81 K/uL (0.11-0.59); NEUT % 84.6 %; NEUT ABS # 7.79 K/uL (1.4-6.5); PLATELET COUNT 155 K/uL (130-400); RED CELL DISTRIBUTION WIDTH CV 13.4 % (11.5-14.5); RED CELL DISTRIBUTION WIDTH SD 42.8 fL (36.4-46.3); WHITE BLOOD COUNT 9.21 K/uL (4.8-10.8)
[2017-08-22 03:24] LABS: ALBUMIN 2.9 gm/dl (3.4-5.0); ALT/SGPT 81 U/L (12-78); AST/SGOT 55 U/L (15-37); BLOOD UREA NITROGEN 19 mg/dl (7-18); CALCIUM 7.9 mg/dl (8.5-10.1); CARBON DIOXIDE 26 mmol/L (21-32); GLUCOSE 149 mg/dl (70-99); POTASSIUM 4.1 mmol/L (3.5-5.1); SODIUM 127 mmol/L (136-145)
[2017-08-22 03:38] LABS: ALKALINE PHOSPHATASE 152 U/L (45-117); CKMB 5.7 ng/ml (0.5-3.6)
[2017-08-22 07:31] LABS: PTT PATIENT 74.6 SECONDS (21.0-31.0)
[2017-08-22] MEDS: FUROSEMIDE INJ 20 MG in SYRINGE 0 ML IV SCH (08:08)
--- NOTE | 2017-08-22 11:56 | Hospitalist Progress Note ---
Hospitalist Progress Note Date of Service Aug 22, 2017. Subjective Pt evaluation today including: conversation w/ patient, physical exam, lab review, review of studies, review of inpatient medication list Voiding: muhammad catheter in place Patient resting in bed. Feeling well. Alert/oriented x3. Eating and drinking OK. Denies any questions/concerns. Patient denies any fever, chills, sweats, lightheadedness, dizziness, vision changes, CP, palpitations, edema, SOB, wheezing, cough, abdominal pain, nausea, vomiting, diarrhea, urinary symptoms, melena, numbness/tingling, weakness, muscle/joint pain, anxiety/depression, active bleeding, or new skin discoloration/changes. Per RN, no acute events. Doing well. Medications Current Inpatient Medications Medications (Trade) Dose Ordered Sig/Landy Route Start Time Stop Time Status Last Admin Dose Admin Ioversol (Optiray 320) 100 ml UD PRN IV 08/21/17 12:15 08/25/17 12:14 Acetaminophen (Tylenol Tab) 650 mg Q4H PRN PO 08/21/17 14:30 09/20/17 14:29 Al Hydrox/Mg Hydrox/Simethicone (Maalox Max Susp) 15 ml Q4H PRN PO 08/21/17 14:30 09/20/17 14:29 Magnesium Hydroxide (Milk Of Magnesia Susp) 30 ml Q12H PRN PO 08/21/17 14:30 09/20/17 14:29 Ondansetron HCl (Zofran Inj) 4 mg Q6H PRN IV 08/21/17 14:30 09/20/17 14:29 Nitroglycerin (Nitrostat Tab) 0.4 mg UD PRN SL 08/21/17 14:30 09/20/17 14:29 Morphine Sulfate (MoRPHine SULFATE INJ) 2 mg Q30M PRN IV 08/21/17 14:30 09/04/17 14:29 Polyethylene (Miralax Powder Packet) 17 gm DAILY PRN PO 08/21/17 14:30 09/20/17 14:29 Metoprolol Tartrate (Lopressor Iv) 5 mg Q6 PRN IV 08/21/17 14:30 09/20/17 14:29 Hydralazine HCl (HydrALAZINE INJ) 10 mg Q6H PRN IV. 08/21/17 14:30 09/20/17 14:29 Furosemide 20 mg/ Syringe 2 ml @ 4 mls/min BID IV 08/21/17 21:00 09/20/17 20:59 08/22/17 08:08 4 MLS/MIN Albuterol/ Ipratropium (Duoneb) 3 ml Q4R PRN INH 08/21/17 14:30 09/20/17 14:29 Heparin Sodium/ Dextrose 500 ml @ 21 mls/hr [id number] IV 08/22/17 01:00 09/21/17 00:59 08/22/17 01:05 22 MLS/HR Objective Vital Signs Date Time Temp Pulse Resp B/P (MAP) Pulse Ox O2 Delivery O2 Flow Rate FiO2 08/22/17 08:06 Room Air 2.0 08/22/17 07:44 36.8 68 18 124/69 (87) 96 08/22/17 04:00 Room Air 3.0 08/22/17 03:50 36.4 90 17 125/78 (94) 91 Nasal Cannula 3.0 08/21/17 23:59 96 Room Air 2.0 08/21/17 23:50 36.6 81 17 121/77 (92) 93 Nasal Cannula 2.5 08/21/17 20:00 96 Room Air 2.0 08/21/17 20:00 96 Room Air 2.0 08/21/17 19:44 36.5 95 18 126/84 (98) 96 Room Air 08/21/17 16:57 36.6 76 18 142/76 95 Nasal Cannula 2.0 08/21/17 16:12 91 22 136/94 97 Room Air 08/21/17 15:00 86 22 148/94 97 Room Air 08/21/17 14:11 102 23 92 Nasal Cannula 2.0 08/21/17 14:01 133/95 08/21/17 13:41 97 18 96 Nasal Cannula 2.0 08/21/17 13:36 96 22 96 Nasal Cannula 2.0 08/21/17 13:31 135/107 08/21/17 13:26 99 20 96 08/21/17 13:01 143/101 08/21/17 12:56 95 20 95 08/21/17 12:51 156/103 08/21/17 12:06 91 15 99 Nasal Cannula 2.0 08/21/17 12:01 134/101 08/21/17 11:53 93 16 100 08/21/17 11:35 146/94 Physical Exam General Appearance: no apparent distress, + pertinent finding (O2 NC ) Eyes: normal inspection, PERRL ENT: hearing grossly normal, + pertinent finding (blind) Neck: supple Respiratory/Chest: lungs clear, no respiratory distress, no accessory muscle use Cardiovascular: + irregularly irregular (rate controlled) Abdomen: normal bowel sounds, non tender, + distended (less distention/ firmness compared to yesterday) Extremities: no calf tenderness, + swelling (+2 pitting edema to BLEs) Neurologic/Psychiatric: alert, oriented x 3 Skin: normal color, warm/dry, no rash Laboratory Results Last 24 Hours Test 08/21/17 11:36 08/21/17 11:45 08/21/17 14:46 08/21/17 14:50 Influenza Type A (RT-PCR) Neg for Influ A Influenza Type B (RT-PCR) Neg for Influ B Urine Color DK YELLOW Urine Appearance CLEAR Urine pH 5.0 Urine Specific [place] 1.026 Urine Protein 1+ Urine Glucose (UA) TRACE Urine Ketones NEG Urine Occult Blood NEG Urine Nitrite NEG Urine Bilirubin NEG Urine Urobilinogen NEG Urine Leukocyte Esterase NEG Urine WBC (Auto) 1-5 /hpf Urine RBC (Auto) 0-4 /hpf Urine Hyaline Casts (Auto) 1-5 /lpf Urine Epithelial Cells (Auto) 10-20 /lpf Urine Bacteria (Auto) NEG Urine Osmolality 705 mOms/kg Urine Random Sodium 15 mEq/L Urine Random Potassium 103.3 mEq/L Sodium Level 124 mmol/L Potassium Level 4.9 mmol/L Chloride Level 93 mmol/L Carbon Dioxide Level 24 mmol/L Anion Gap 7.0 mmol/L Blood Urea Nitrogen 18 mg/dl Creatinine 1.19 mg/dl Est Creatinine Clear Calc Drug Dose 47.6 ml/min Estimated GFR () 70.3 Estimated GFR (Non- 60.7 BUN/Creatinine Ratio 14.9 Random Glucose 156 mg/dl Osmolality 277 mOsm/kg Calcium Level 8.0 mg/dl Ammonia < 10.0 umol/L Test 08/21/17 19:00 08/21/17 19:11 08/21/17 22:20 08/22/17 02:46 Creatine Kinase MB Ratio Lactic Acid Level 3.6 mmol/L Creatine Kinase MB 6.7 ng/ml 5.7 ng/ml Troponin I 0.041 ng/ml 0.030 ng/ml Sodium Level 127 mmol/L 127 mmol/L Potassium Level 4.0 mmol/L 4.1 mmol/L Chloride Level 93 mmol/L 94 mmol/L Carbon Dioxide Level 27 mmol/L 26 mmol/L Anion Gap 7.0 mmol/L 7.0 mmol/L Blood Urea Nitrogen 19 mg/dl 19 mg/dl Creatinine 1.08 mg/dl 1.00 mg/dl Est Creatinine Clear Calc Drug Dose 52.5 ml/min 56.7 ml/min Estimated GFR () 79.1 86.8 Estimated GFR (Non- 68.2 74.9 BUN/Creatinine Ratio 17.3 19.1 Random Glucose 151 mg/dl 149 mg/dl Calcium Level 8.0 mg/dl 7.9 mg/dl White Blood Count 9.21 K/uL Red Blood Count 4.64 M/uL Hemoglobin 14.1 g/dL Hematocrit 40.6 % Mean Corpuscular Volume 87.5 fL Mean Corpuscular Hemoglobin 30.4 pg Mean Corpuscular Hemoglobin Concent 34.7 g/dl Platelet Count 155 K/uL Mean Platelet Volume 10.9 fL Neutrophils (%) (Auto) 84.6 % Lymphocytes (%) (Auto) 6.4 % Monocytes (%) (Auto) 8.8 % Eosinophils (%) (Auto) 0.0 % Basophils (%) (Auto) 0.0 % Neutrophils # (Auto) 7.79 K/uL Lymphocytes # (Auto) 0.59 K/uL Monocytes # (Auto) 0.81 K/uL Eosinophils # (Auto) 0.00 K/uL Basophils # (Auto) 0.00 K/uL RDW Standard Deviation 42.8 fL RDW Coefficient of Variation 13.4 % Immature Granulocyte % (Auto) 0.2 % Immature Granulocyte # (Auto) 0.02 K/uL Magnesium Level 2.0 mg/dl Total Bilirubin 1.5 mg/dl Aspartate Amino Transf (AST/SGOT) 55 U/L Alanine Aminotransferase (ALT/SGPT) 81 U/L Alkaline Phosphatase 152 U/L Total Protein 6.0 gm/dl Albumin 2.9 gm/dl Globulin 3.1 gm/dl Albumin/Globulin Ratio 0.9 Test 08/22/17 06:55 Activated Partial Thromboplast Time 74.6 SECONDS Partial Thromboplastin Ratio 2.9 Cortisol AM Sample 8.98 mcg/dl Assessment and Plan Patient is a pleasant, legally blind, 72 y/o male, with PMHx of MR and seizure disorder, currently on no medications, who presented to the ED because of SOB x1 day. Acute respiratory failure w/ hypoxia, likely secondary to CHF- unknown type at this time, new onset a.fib: - Admit to tele for cardiac monitoring- a.fib, rates controlled - Trend cardiac enzymes- negative - O2 protocol- NOT on O2 supplement at home - DuoNebs PRN for sob/wheezing - Nitro and IV Morphine PRN for chest pain - Elevated BNP at 10,000 - Elevated lactic acid 3.7- repeat q6 hrs at 3.6- UA negative, CXR and CT negative for infectious findings, BCx pending - ECHO pending - Continue IV Lasix 20 mg BID - Monitor I&Os and daily weights - negative 3.4L - Head CT negative for acute intracranial findings - IV Heparin gtt for a.fib- appreciate cardiology recommendations on transitioning to PO - IV Metoprolol PRN for HR >120 - TSH WNL - Consult cardiology, appreciate recommendation - Follow PRP and CBC- STABLE Hyponatremia, ?secondary to CHF- IMPROVING: - IV Lasix as above - AM cortisol, urine sodium, urine potassium, urine/serum osmolality- reviewed Elevated LFTs, ?secondary to CHF vs gallbladder disease: - Follow LFTs- trending down - Ammonia level- WNL - RUQ U/S- reviewed- small biliary sludge, fatty liver MR: Aspiration precautions- mechanical soft diet per brother h/o seizure disorder- noted- currently on no medications DVT prophylaxis: IV Heparin gtt Code status: LEVEL I, FULL- discussed w/ brother Dispo: From home, lives w/ brother and [id number]- PT/OT and CM consulted
--- NOTE | 2017-08-22 12:55 | ECHOCARDIOGRAM REPORT ---
*NOTICE TO RECEIVING LIBERTARIAN AGENCY This information is strictly Confidential and protected under [place] law. [place] law prohibits you from making any further disclosure of this information unless further disclosure is expressly permitted by the written consent of the person to whom it pertains or is authorized by law. A general authorization for the release of medical or other information is not sufficient for this purpose. Hospital accepts no responsibility if the information is made available to any other person, INCLUDING THE PATIENT. Interpretation Summary * Name: GARIMA LUIS Study Date: 08/22/2017 09:39 AM BP: 124/69 mmHg * Patient Location: C.2T\S\S238\S\2 HR: 94 * : 1945 (M/d/yyyy) Gender: Male Height: 66 in * Age: 72 yrs Ethnicity: CA Weight: 132 lb * Ordering Physician: Chitra Ennis * Referring Physician: Self, Referred * Performed By: Ismael Gonzalez RDCS * * Reason For Study: CHF * BSA: 1.7 m2 * -- Conclusions -- * Left ventricular systolic function is normal. * The left atrium is severely dilated. * The right atrium is severely dilated. * Mild aortic regurgitation. * There is mild mitral valve prolapse. * There is severe mitral regurgitation. * Right ventricular systolic pressure is elevated at 40-50mmHg. * Small pericardial effusion. Procedure Details * A complete two-dimensional transthoracic echocardiogram was performed (2D, M-mode, Doppler and color flow Doppler). * The study was technically adequate. Left Ventricle * The left ventricle is normal in size. * There is normal left ventricular wall thickness. * Left ventricular systolic function is normal. * Ejection Fraction = 60-65%. * The left ventricular wall motion is normal. Right Ventricle * The right ventricle is normal in size and function. Atria * The left atrium is severely dilated. * The right atrium is severely dilated. Mitral Valve * The mitral valve is grossly normal. * There is mild mitral valve prolapse. * There is severe mitral regurgitation. Tricuspid Valve * The tricuspid valve is not well visualized, but is grossly normal. * There is trace tricuspid regurgitation. * Right ventricular systolic pressure is elevated at 40-50mmHg. Aortic Valve * The aortic valve is normal in structure and function. * The aortic valve is trileaflet. * No hemodynamically significant valvular aortic stenosis. * Mild aortic regurgitation. Pulmonic Valve * The pulmonic valve leaflets are thin and pliable; valve motion is normal. * Trace pulmonic valvular regurgitation. Great Vessels * The aortic root is normal size. Pericardium/Pleural * Small pericardial effusion. Great Vessels * Normal inferior vena cava diameter and respiratory variation suggests normal central venous pressure. MMode 2D Measurements and Calculations IVSd 1.2 cm IVSs 1.7 cm LVIDd 5.0 cm LVIDs 2.3 cm LVPWd 1.0 cm LVPWs 1.6 cm IVS/LVPW 1.1 FS 54.0 % EDV(Teich) 117.4 ml ESV(Teich) 18.0 ml EF(Teich) 84.7 % EDV(cubed) 123.8 ml ESV(cubed) 12.1 ml EF(cubed) 90.3 % % IVS thick 44.2 % % LVPW thick 52.8 % LV mass(C)d 210.4 grams LV mass(C)dI 125.5 grams/m\S\2 LV mass(C)s 136.9 grams LV mass(C)sI 81.7 grams/m\S\2 SV(Teich) 99.4 ml SI(Teich) 59.3 ml/m\S\2 SV(cubed) 111.8 ml SI(cubed) 66.7 ml/m\S\2 Ao root diam 2.7 cm Ao root area 5.6 cm\S\2 ACS 1.5 cm LA dimension 6.8 cm asc Aorta Diam 2.7 cm LA/Ao 2.5 LVOT diam 2.0 cm LVOT area 3.0 cm\S\2 LVAd ap4 27.0 cm\S\2 LVLd ap4 7.8 cm EDV(MOD-sp4) 79.8 ml EDV(sp4-el) 79.4 ml LVAs ap4 15.2 cm\S\2 LVLs ap4 6.9 cm ESV(MOD-sp4) 30.8 ml ESV(sp4-el) 28.3 ml EF(MOD-sp4) 61.4 % EF(sp4-el) 64.3 % LVAd ap2 34.2 cm\S\2 LVLd ap2 9.2 cm EDV(MOD-sp2) 105.4 ml EDV(sp2-el) 107.2 ml LVAs ap2 18.5 cm\S\2 LVLs ap2 8.2 cm ESV(MOD-sp2) 34.8 ml ESV(sp2-el) 35.4 ml EF(MOD-sp2) 67.0 % EF(sp2-el) 67.0 % LVLd %diff 15.5 % EDV(MOD-bp) 98.8 ml LVLs %diff 15.3 % ESV(MOD-bp) 33.7 ml EF(MOD-bp) 65.9 % SV(MOD-sp4) 49.0 ml SI(MOD-sp4) 29.2 ml/m\S\2 SV(MOD-sp2) 70.6 ml SI(MOD-sp2) 42.1 ml/m\S\2 SV(MOD-bp) 65.1 ml SI(MOD-bp) 38.8 ml/m\S\2 SV(sp4-el) 51.1 ml SI(sp4-el) 30.5 ml/m\S\2 SV(sp2-el) 71.8 ml SI(sp2-el) 42.8 ml/m\S\2 Doppler Measurements and Calculations MV E max ion 105.5 cm/sec MV dec time 0.23 sec Ao V2 max 160.2 cm/sec Ao max PG 10.3 mmHg Ao max PG (full) 5.0 mmHg MARYCRUZ(V,A) 2.1 cm\S\2 MARYCRUZ(V,D) 2.1 cm\S\2 AI end-d ion 218.9 cm/sec AI max ion 289.6 cm/sec AI max PG 33.5 mmHg AI dec slope 171.4 cm/sec\S\2 AI P1/2t 494.8 msec LV V1 max PG 5.2 mmHg LV V1 max 114.3 cm/sec PA V2 max 79.8 cm/sec PA max PG 2.5 mmHg TR max ion 307.4 cm/sec
[2017-08-22 14:35] LABS: CALCIUM 8.4 mg/dl (8.5-10.1); CREATININE 1.5 mg/dl (0.60-1.40); POTASSIUM 4.2 mmol/L (3.5-5.1)
--- NOTE | 2017-08-22 16:24 | Cardiology Consultation ---
Cardiology Consultation Date of Consultation: Aug 22, 2017. Requesting Physician: Destinee Reason for Consultation: Dyspnea, AF Pt evaluation today including: conversation w/ patient, physical exam, chart review, lab review, review of studies, review of inpatient medication list, conversation w/ attending History of Present Illness Patient is a 72-year-old gentleman without a known cardiac history who was brought to [facility] by his brother for symptoms of shortness of breath. Patient suffers from cognitive dysfunction and can provide little insight into his current condition. During the interview today the patient stated that he was not short of breath. He had some vague recollection of being short of breath over the past couple of days. He denies any pain currently. He states that most days he likes to play piano and use the squeeze box, but does not perform a lot of physical activity due to his poor vision. He claims to have a good appetite. He has not been aware of any racing heartbeats or abnormal heartbeats lately. He denies any orthopnea. He is not aware of any swelling in his lower extremities. The patient currently lives with his brother and is fairly sedentary. He does not appear to have a primary care physician or a significant past medical history with the exception of seizure disorder, mental retardation and being blind. Past Medical/Surgical History Blindness Mental retardation Seizure disorder Family History Patient reports no known family medical history. Noncontributory given his advanced age and comorbidities Social History Smoking Status: Never Smoker History of Alcohol Use: Yes ([facility] BEER) Previously lived with his parents [place], now living with his brother locally. He is disabled. Review of Systems Per HPI All Other Systems: Reviewed and Negative Allergies Coded Allergies: No Known Allergies (Unverified , 08/21/17) Medications Current Inpatient Medications Medications (Trade) Dose Ordered Sig/Landy Route Start Time Stop Time Status Last Admin Dose Admin Ioversol (Optiray 320) 100 ml UD PRN IV 08/21/17 12:15 08/25/17 12:14 Acetaminophen (Tylenol Tab) 650 mg Q4H PRN PO 08/21/17 14:30 09/20/17 14:29 Al Hydrox/Mg Hydrox/Simethicone (Maalox Max Susp) 15 ml Q4H PRN PO 08/21/17 14:30 09/20/17 14:29 Magnesium Hydroxide (Milk Of Magnesia Susp) 30 ml Q12H PRN PO 08/21/17 14:30 09/20/17 14:29 Ondansetron HCl (Zofran Inj) 4 mg Q6H PRN IV 08/21/17 14:30 09/20/17 14:29 Nitroglycerin (Nitrostat Tab) 0.4 mg UD PRN SL 08/21/17 14:30 09/20/17 14:29 Morphine Sulfate (MoRPHine SULFATE INJ) 2 mg Q30M PRN IV 08/21/17 14:30 09/04/17 14:29 Polyethylene (Miralax Powder Packet) 17 gm DAILY PRN PO 08/21/17 14:30 09/20/17 14:29 Metoprolol Tartrate (Lopressor Iv) 5 mg Q6 PRN IV 08/21/17 14:30 09/20/17 14:29 Hydralazine HCl (HydrALAZINE INJ) 10 mg Q6H PRN IV. 08/21/17 14:30 09/20/17 14:29 Furosemide 20 mg/ Syringe 2 ml @ 4 mls/min BID IV 08/21/17 21:00 09/20/17 20:59 Future Hold 08/22/17 08:08 4 MLS/MIN Albuterol/ Ipratropium (Duoneb) 3 ml Q4R PRN INH 08/21/17 14:30 09/20/17 14:29 Heparin Sodium/ Dextrose 500 ml @ 19 mls/hr Q24H IV 08/22/17 01:00 09/21/17 00:59 08/22/17 15:34 19 MLS/HR Physical Exam Vital Signs Past 12 Hours Date Time Temp Pulse Resp B/P (MAP) Pulse Ox O2 Delivery O2 Flow Rate FiO2 08/22/17 12:18 36.8 75 18 126/65 (85) 95 08/22/17 12:02 95 Room Air 2.0 08/22/17 08:06 Room Air 2.0 08/22/17 07:44 36.8 68 18 124/69 (87) 96 The patient is alert and oriented. Mood and affect appeared normal. He answered all questions appropriately. HEENT: Patient has opaque lenses Extraocular movements are intact. The sclerae are anicteric. Neuro: Cranial nerves intact Neck: Patient's neck is supple. He has palpable carotid pulses bilaterally without bruits on auscultation. Mild JVD. The thyroid is not enlarged. Lungs: Clear to auscultation bilaterally. He has good air movement without use of accessory muscles. No rales wheezes or rhonchi. Cardiac: Heart demonstrates an irregular rate and rhythm. Normal S1 and S2. Loud holosystolic murmur of variable intensity heard in the left axilla Pulses: The patient has palpable radial pulses bilaterally that are equal in intensity Extremities: There was no evidence of hypoperfusion. There is no cyanosis or clubbing. There is no edema. Skin: I did not appreciate any rashes on examination today. Data Laboratory Results: Last 24 Hours Test 08/21/17 19:00 08/21/17 19:11 08/21/17 22:20 08/22/17 02:46 Creatine Kinase MB Ratio Lactic Acid Level 3.6 mmol/L Creatine Kinase MB 6.7 ng/ml 5.7 ng/ml Troponin I 0.041 ng/ml 0.030 ng/ml Sodium Level 127 mmol/L 127 mmol/L Potassium Level 4.0 mmol/L 4.1 mmol/L Chloride Level 93 mmol/L 94 mmol/L Carbon Dioxide Level 27 mmol/L 26 mmol/L Anion Gap 7.0 mmol/L 7.0 mmol/L Blood Urea Nitrogen 19 mg/dl 19 mg/dl Creatinine 1.08 mg/dl 1.00 mg/dl Est Creatinine Clear Calc Drug Dose 52.5 ml/min 56.7 ml/min Estimated GFR () 79.1 86.8 Estimated GFR (Non- 68.2 74.9 BUN/Creatinine Ratio 17.3 19.1 Random Glucose 151 mg/dl 149 mg/dl Calcium Level 8.0 mg/dl 7.9 mg/dl White Blood Count 9.21 K/uL Red Blood Count 4.64 M/uL Hemoglobin 14.1 g/dL Hematocrit 40.6 % Mean Corpuscular Volume 87.5 fL Mean Corpuscular Hemoglobin 30.4 pg Mean Corpuscular Hemoglobin Concent 34.7 g/dl Platelet Count 155 K/uL Mean Platelet Volume 10.9 fL Neutrophils (%) (Auto) 84.6 % Lymphocytes (%) (Auto) 6.4 % Monocytes (%) (Auto) 8.8 % Eosinophils (%) (Auto) 0.0 % Basophils (%) (Auto) 0.0 % Neutrophils # (Auto) 7.79 K/uL Lymphocytes # (Auto) 0.59 K/uL Monocytes # (Auto) 0.81 K/uL Eosinophils # (Auto) 0.00 K/uL Basophils # (Auto) 0.00 K/uL RDW Standard Deviation 42.8 fL RDW Coefficient of Variation 13.4 % Immature Granulocyte % (Auto) 0.2 % Immature Granulocyte # (Auto) 0.02 K/uL Magnesium Level 2.0 mg/dl Total Bilirubin 1.5 mg/dl Aspartate Amino Transf (AST/SGOT) 55 U/L Alanine Aminotransferase (ALT/SGPT) 81 U/L Alkaline Phosphatase 152 U/L Total Protein 6.0 gm/dl Albumin 2.9 gm/dl Globulin 3.1 gm/dl Albumin/Globulin Ratio 0.9 Test 08/22/17 06:55 08/22/17 14:10 Activated Partial Thromboplast Time 74.6 SECONDS 86.0 SECONDS Partial Thromboplastin Ratio 2.9 3.3 Cortisol AM Sample 8.98 mcg/dl Sodium Level 129 mmol/L Potassium Level 4.2 mmol/L Chloride Level 93 mmol/L Carbon Dioxide Level 30 mmol/L Anion Gap 6.0 mmol/L Blood Urea Nitrogen 23 mg/dl Creatinine 1.50 mg/dl Est Creatinine Clear Calc Drug Dose 37.8 ml/min Estimated GFR () 53.1 Estimated GFR (Non- 45.9 BUN/Creatinine Ratio 15.3 Random Glucose 79 mg/dl Calcium Level 8.4 mg/dl Imaging: Chest x-ray and chest CT suggestive of pulmonary edema. Head CT and gallbladder ultrasound unremarkable EKG: Atrial fibrillation, right bundle branch block Telemetry reviewed: Atrial fibrillation with controlled rate Echocardiogram demonstrated severe biatrial enlargement with severe mitral regurgitation and preserved biventricular function. Assessment & Plan 1. Acute diastolic congestive heart failure: Patient has preserved LV systolic function on echocardiogram. However he certainly had an element of pulmonary vascular congestion likely related to his severe valvular heart disease. He has normal cardiac biomarkers and no history of chest pain which would suggest the absence of a recent coronary syndrome. It is very likely that he had longstanding valvular disease and recently became decompensated. This may resulted from a change in rhythm from sinus to atrial fibrillation. He has undergone aggressive diuresis with significant improvement in his exam and symptoms. We will need to monitor his electrolytes and renal function closely. He likely still has an element of hypovolemia. 2. Atrial fibrillation: He appears to have adequate rate control on a fairly low dose of beta blockade. I think he could be switched to a once daily formulation and we can monitor his heart rates. Given his age he could be considered for anticoagulation although technically he is a chads Vasc 1. If there is some concern regarding safety on anticoagulation this could likely be deferred at this time. 3. Valvular heart disease: Patient appears to have severe mitral regurgitation. He has severe left atrial enlargement. It is unclear what the source of his regurgitation happens to be although most appears to be central. A JLUIS would generally be indicated however this would only be of value in order to plan an intervention. Unclear to me if the patient is a good candidate for any intervention for valvular heart disease given his other comorbidities.
[2017-08-22] MEDS ORDERED: WARFARIN SOD 5 MG TAB PO ONE (17:15)
[2017-08-22 22:26] LABS: CALCIUM 7.9 mg/dl (8.5-10.1); CREATININE 1.27 mg/dl (0.60-1.40)
[2017-08-22 22:35] LABS: PTT PATIENT 26.1 SECONDS (21.0-31.0)
[2017-08-23 03:38] VITALS: BP 122/80; PULSE 79; TEMP 36.3; O2SAT 92
[2017-08-23 05:00] LABS: INR 1.1 (0.9-1.1); PTT PATIENT 25.9 SECONDS (21.0-31.0)
[2017-08-23 05:17] LABS: ALBUMIN 2.8 gm/dl (3.4-5.0); CALCIUM 7.9 mg/dl (8.5-10.1); CREATININE 1.05 mg/dl (0.60-1.40); POTASSIUM 3.7 mmol/L (3.5-5.1)
[2017-08-23 08:17] VITALS: BP 128/77; PULSE 79; TEMP 36.4; O2SAT 92
[2017-08-23] MEDS ORDERED: WARFARIN SOD 3 MG TAB PO SCH ×2 (09:00→16:00)
[2017-08-23] MEDS: METOPROLOL SUCC 25MG EXT REL TAB PO SCH (10:00)
--- NOTE | 2017-08-23 10:02 | Cardiology Follow-Up ---
Subjective Date of Service: Aug 23, 2017. Pt evaluation today including: conversation w/ patient, physical exam, chart review, lab review, review of studies, review of inpatient medication list History of Present Illness This morning the patient claims to be feeling well. He denies any breathing difficulty. He has not report any pain. He is not aware of any palpitations or rapid heartbeats. He was able to tolerate his breakfast. He is not having questions. Social History Smoking Status: Never Smoker History of Alcohol Use: Yes ([facility]) Review of Systems Per HPI Objective Vital Signs Past 12 Hours Date Time Temp Pulse Resp B/P (MAP) Pulse Ox O2 Delivery O2 Flow Rate FiO2 08/23/17 08:17 36.4 79 18 128/77 (94) 92 Room Air 08/23/17 08:04 Nasal Cannula 2.0 08/23/17 04:00 Nasal Cannula 2.0 08/23/17 03:38 36.3 79 16 122/80 (94) 92 Room Air 08/22/17 23:59 Nasal Cannula 2.0 08/22/17 23:53 36.4 84 17 121/76 (91) 93 Room Air Last Recorded Weight-Kilograms: 59.700 Physical Exam The patient is alert and oriented. Mood and affect appeared normal. He answered all questions appropriately. HEENT: Patient has opaque lenses Extraocular movements are intact. The sclerae are anicteric. Neuro: Cranial nerves intact Neck: Patient's neck is supple. He has palpable carotid pulses bilaterally without bruits on auscultation. Mild JVD. The thyroid is not enlarged. Lungs: Clear to auscultation bilaterally. He has good air movement without use of accessory muscles. No rales wheezes or rhonchi. Cardiac: Heart demonstrates an irregular rate and rhythm. Normal S1 and S2. Loud holosystolic murmur of variable intensity heard in the left axilla Pulses: The patient has palpable radial pulses bilaterally that are equal in intensity Extremities: There was no evidence of hypoperfusion. There is no cyanosis or clubbing. There is no edema. Skin: I did not appreciate any rashes on examination today. Data Laboratory Results: Last 24 Hours Test 08/22/17 14:10 08/22/17 21:38 08/23/17 04:29 Activated Partial Thromboplast Time 86.0 SECONDS 26.1 SECONDS 25.9 SECONDS Partial Thromboplastin Ratio 3.3 1.0 1.0 Sodium Level 129 mmol/L 129 mmol/L 128 mmol/L Potassium Level 4.2 mmol/L 4.0 mmol/L 3.7 mmol/L Chloride Level 93 mmol/L 94 mmol/L 95 mmol/L Carbon Dioxide Level 30 mmol/L 29 mmol/L 29 mmol/L Anion Gap 6.0 mmol/L 6.0 mmol/L 4.0 mmol/L Blood Urea Nitrogen 23 mg/dl 30 mg/dl 26 mg/dl Creatinine 1.50 mg/dl 1.27 mg/dl 1.05 mg/dl Est Creatinine Clear Calc Drug Dose 37.8 ml/min 44.6 ml/min 53.7 ml/min Estimated GFR () 53.1 65.0 81.8 Estimated GFR (Non- 45.9 56.1 70.6 BUN/Creatinine Ratio 15.3 23.5 25.1 Random Glucose 79 mg/dl 89 mg/dl 79 mg/dl Calcium Level 8.4 mg/dl 7.9 mg/dl 7.9 mg/dl Prothrombin Time 11.1 SECONDS Prothromb Time International Ratio 1.1 Total Bilirubin 0.9 mg/dl Direct Bilirubin 0.3 mg/dl Aspartate Amino Transf (AST/SGOT) 39 U/L Alanine Aminotransferase (ALT/SGPT) 70 U/L Alkaline Phosphatase 137 U/L Total Protein 6.0 gm/dl Albumin 2.8 gm/dl Imaging: EKG: Telemetry reviewed: Assessment and Plan 1. Acute diastolic congestive heart failure: He seems well compensated currently. He does have an element of hyponatremia. However, his examination is benign has no apparent symptoms. Blood pressure appears reasonably controlled. I think at this point we can monitor his weight and symptoms and prescribed diuretic therapy as needed. 2. Atrial fibrillation: Overall heart rates seem reasonably controlled. I did prescribe him a small dose of metoprolol succinate daily. He has no overt symptoms. Very possible that a conversion to atrial fibrillation resulted in his recent decompensation. The patient has been started on warfarin. His chads Vasc score is actually low. I think we could certainly debate whether he needs to be started on anticoagulation based on his chads Vasc score and other comorbidities. 3. Valvular heart disease: Patient appears to have severe mitral regurgitation. He has severe left atrial enlargement. It is unclear what the source of his regurgitation happens to be although most appears to be central. A JLUIS would generally be indicated however this would only be of value in order to plan an intervention. Unclear to me if the patient is a good candidate for any intervention for valvular heart disease given his other comorbidities. Overall he appears quite stable. It is possible that the remainder of his evaluation could be done on outpatient basis. Whether more aggressive intervention is desired by the patient or his family is unclear at this time.
[2017-08-23 12:04] VITALS: O2SAT 93
[2017-08-23 12:06] VITALS: BP 122/83; PULSE 67; TEMP 36.4; O2SAT 96
[2017-08-23] MEDS ORDERED: FUROSEMIDE 20 MG TAB PO ONE (12:30)
--- NOTE | 2017-08-23 13:12 | Hospitalist Progress Note ---
Hospitalist Progress Note Date of Service Aug 23, 2017. (Chitra Ennis ., PA-C) Subjective Pt evaluation today including: conversation w/ patient, conversation w/ family (brother and [id number] at bedside ), physical exam, lab review, conversation w/ eyewear consultant, review of inpatient medication list Voiding: no voiding problems Patient resting in bed. Feeling well. Eating and drinking OK. Denies any complaints/questions. Patient denies any fever, chills, sweats, lightheadedness, dizziness, vision changes, CP, palpitations, edema, SOB, wheezing, cough, abdominal pain, nausea, vomiting, diarrhea, urinary symptoms, melena, numbness/tingling, weakness, muscle/joint pain, anxiety/depression, active bleeding, or new skin discoloration/changes. Per RN- bradycardia while sleeping to 30s. Otherwise doing well, no acute events. Discussed plan with family: Agree no anticoagulation due to fall risk Suggest PRN Lasix at discharged based off daily weights- does not think PRN Lasix can be managed No surgical intervention for MR Discussed w/ Dr. Campbell- Metoprolol 25 daily, agrees to Lasix 20 mg daily, no anticoagulation is appropriate (Chitra Ennis ., PA-C) Medications Current Inpatient Medications Medications (Trade) Dose Ordered Sig/Landy Route Start Time Stop Time Status Last Admin Dose Admin Ioversol (Optiray 320) 100 ml UD PRN IV 08/21/17 12:15 08/25/17 12:14 Acetaminophen (Tylenol Tab) 650 mg Q4H PRN PO 08/21/17 14:30 09/20/17 14:29 Al Hydrox/Mg Hydrox/Simethicone (Maalox Max Susp) 15 ml Q4H PRN PO 08/21/17 14:30 09/20/17 14:29 Magnesium Hydroxide (Milk Of Magnesia Susp) 30 ml Q12H PRN PO 08/21/17 14:30 09/20/17 14:29 Ondansetron HCl (Zofran Inj) 4 mg Q6H PRN IV 08/21/17 14:30 09/20/17 14:29 Nitroglycerin (Nitrostat Tab) 0.4 mg UD PRN SL 08/21/17 14:30 09/20/17 14:29 Morphine Sulfate (MoRPHine SULFATE INJ) 2 mg Q30M PRN IV 08/21/17 14:30 09/04/17 14:29 Polyethylene (Miralax Powder Packet) 17 gm DAILY PRN PO 08/21/17 14:30 09/20/17 14:29 Metoprolol Tartrate (Lopressor Iv) 5 mg Q6 PRN IV 08/21/17 14:30 09/20/17 14:29 Hydralazine HCl (HydrALAZINE INJ) 10 mg Q6H PRN IV. 08/21/17 14:30 09/20/17 14:29 Albuterol/ Ipratropium (Duoneb) 3 ml Q4R PRN INH 08/21/17 14:30 09/20/17 14:29 Metoprolol Succinate (Toprol Xl Tab) 25 mg QAM PO 08/23/17 10:00 09/22/17 09:59 Furosemide (Lasix Tab) 20 mg QAM PO 08/24/17 09:00 09/23/17 08:59 (Chitra Ennis ., PA-C) Objective Vital Signs Date Time Temp Pulse Resp B/P (MAP) Pulse Ox O2 Delivery O2 Flow Rate FiO2 08/23/17 12:06 36.4 67 16 122/83 (96) 96 Room Air 08/23/17 12:04 93 Room Air 08/23/17 08:17 36.4 79 18 128/77 (94) 92 Room Air 08/23/17 08:04 Nasal Cannula 2.0 08/23/17 04:00 Nasal Cannula 2.0 08/23/17 03:38 36.3 79 16 122/80 (94) 92 Room Air 08/22/17 23:59 Nasal Cannula 2.0 08/22/17 23:53 36.4 84 17 121/76 (91) 93 Room Air 08/22/17 20:00 Nasal Cannula 2.0 08/22/17 19:43 36.2 91 20 104/71 (82) 91 Room Air 08/22/17 15:26 36.6 93 20 113/78 (90) 95 Room Air 08/22/17 15:10 95 Room Air (Chitra Ennis ., PA-C) Physical Exam General Appearance: no apparent distress Eyes: normal inspection, PERRL ENT: hearing grossly normal, + pertinent finding (blindness) Neck: supple Respiratory/Chest: lungs clear, no respiratory distress, no accessory muscle use Cardiovascular: + systolic murmur, + irregularly irregular (rate controlled) Abdomen: normal bowel sounds, non tender, + distended Extremities: no calf tenderness, + swelling (+2 pitting edema BLEs) Neurologic/Psychiatric: alert, normal mood/affect, oriented x 3 Skin: normal color, warm/dry, no rash (Chitra Ennis PA-C) Laboratory Results Last 24 Hours Test 08/22/17 14:10 08/22/17 21:38 08/23/17 04:29 Activated Partial Thromboplast Time 86.0 SECONDS 26.1 SECONDS 25.9 SECONDS Partial Thromboplastin Ratio 3.3 1.0 1.0 Sodium Level 129 mmol/L 129 mmol/L 128 mmol/L Potassium Level 4.2 mmol/L 4.0 mmol/L 3.7 mmol/L Chloride Level 93 mmol/L 94 mmol/L 95 mmol/L Carbon Dioxide Level 30 mmol/L 29 mmol/L 29 mmol/L Anion Gap 6.0 mmol/L 6.0 mmol/L 4.0 mmol/L Blood Urea Nitrogen 23 mg/dl 30 mg/dl 26 mg/dl Creatinine 1.50 mg/dl 1.27 mg/dl 1.05 mg/dl Est Creatinine Clear Calc Drug Dose 37.8 ml/min 44.6 ml/min 53.7 ml/min Estimated GFR () 53.1 65.0 81.8 Estimated GFR (Non- 45.9 56.1 70.6 BUN/Creatinine Ratio 15.3 23.5 25.1 Random Glucose 79 mg/dl 89 mg/dl 79 mg/dl Calcium Level 8.4 mg/dl 7.9 mg/dl 7.9 mg/dl Prothrombin Time 11.1 SECONDS Prothromb Time International Ratio 1.1 Magnesium Level 2.1 mg/dl Total Bilirubin 0.9 mg/dl Direct Bilirubin 0.3 mg/dl Aspartate Amino Transf (AST/SGOT) 39 U/L Alanine Aminotransferase (ALT/SGPT) 70 U/L Alkaline Phosphatase 137 U/L Total Protein 6.0 gm/dl Albumin 2.8 gm/dl (Chitra Ennis PA-C) Assessment and Plan Patient is a pleasant, legally blind, 72 y/o male, with PMHx of MR and seizure disorder, currently on no medications, who presented to the ED because of SOB x1 day. Acute respiratory failure w/ hypoxia, likely secondary to acute diastolic CHF- RESOLVED: - Admit to tele for cardiac monitoring- a.fib, rates controlled, episode of NSVT - Trend cardiac enzymes- negative - O2 protocol- NOT on O2 supplement at home - DuoNebs PRN for sob/wheezing - Nitro and IV Morphine PRN for chest pain - Elevated lactic acid 3.7- repeat q6 hrs at 3.6- UA negative, CXR and CT negative for infectious findings, BCx NGTD - ECHO- preserved EF - Elevated BNP at 10,000 - IV Lasix 20 mg BID- transition to PO Lasix 20 mg daily - Monitor I&Os and daily weights - negative 3.3L - Head CT negative for acute intracranial findings - IV Heparin gtt for a.fib- appreciate cardiology recommendations on transitioning to PO- CHADSVASc score 1- does not think anticoagulation appropriate w/ fall risk -- Discussed anticoagulation w/ family- agree no anticoagulation is appropriate at this time - IV Metoprolol PRN for HR >120 - TSH WNL - Consult cardiology, appreciate recommendation- start Metoprolol 25 mg daily - Follow PRP and CBC- STABLE Severe mitral regurgitation: Discussed w/ family- medication management, no surgery ?MELISSA: Recommend outpatient sleep study Hyponatremia, ?secondary to CHF- STABLE: - Lasix as above - AM cortisol, urine sodium, urine potassium, urine/serum osmolality- reviewed Elevated LFTs, ?secondary to CHF vs gallbladder disease- RESOLVING: - Follow LFTs- trending down - Ammonia level- WNL - RUQ U/S- reviewed- small biliary sludge, fatty liver MR- STABLE: Aspiration precautions- mechanical soft diet per brother h/o seizure disorder- noted- currently on no medications- STABLE DVT prophylaxis: TEDs/SCDs Code status: LEVEL I, FULL- discussed w/ brother Dispo: From home, lives w/ brother and [id number]- PT/OT and CM consulted- hopeful discharge in the next 1-2 days - CM to look into HHS for CHF management (Chitra Ennis ., PA-C) PA Physician Supervision Note: I interviewed and examined the patient. Discussed with Chitra Ennis PAC and agree with findings and plan as documented in the note. Any exceptions or clarifications are listed here: None 36.4 79 18 128/77 Pt is in no distress, car is regular and not tachy in fact is lilibeth with sleep, lungs are clear 72M with intellectual impairment, history of blindness and Seizure disorder that is stable presents with acute diastolic heart failure secondary to valvular heart disease Acute respiratory failure w/ hypoxia, likely secondary to acute diastolic CHF- RESOLVED: - ECHO- preserved EF but significant MR Elevated BNP at 10,000 - IV Lasix 20 mg BID- transition to PO Lasix 20 mg daily Afib, IV Metoprolol PRN for HR >120, family does not want full AC Consult cardiology, started Metoprolol 25 mg po daily rgery ?MELISSA: Recommend outpatient sleep study Hyponatremia, ?secondary to CHF- STABLE: - AM cortisol, urine sodium, urine potassium, urine/serum osmolality- reviewed Elevated LFTs, hepatic congestion- RESOLVING: - Follow LFTs- trending down - Ammonia level- WNL- RUQ U/S- reviewed- small biliary sludge, fatty liver MR- STABLE: Aspiration precautions- mechanical soft diet h/o seizure disorder- STABLE currently on no medications- DVT prophylaxis: TEDs/SCDs, : LEVEL I, FULL- Documented By: Alvarado Grubbs (Alvarado Grubbs M.D.)
[2017-08-23 14:32] LABS: CALCIUM 8.3 mg/dl (8.5-10.1); CREATININE 1.26 mg/dl (0.60-1.40); POTASSIUM 3.8 mmol/L (3.5-5.1)
[2017-08-23 15:18] VITALS: BP 116/77; PULSE 78; TEMP 36.5; O2SAT 91
[2017-08-23 19:50] VITALS: BP 122/81; PULSE 85; TEMP 36.5; O2SAT 92
[2017-08-23 23:23] LABS: CALCIUM 7.9 mg/dl (8.5-10.1); CREATININE 0.95 mg/dl (0.60-1.40); POTASSIUM 3.7 mmol/L (3.5-5.1)
[2017-08-24] VITALS (7 sets, daily range): BP systolic 107–140; BP diastolic 69–86; PULSE 62–92; TEMP 36.5–36.8; O2SAT 94–99
[2017-08-24 04:48] LABS: HEMATOCRIT 42.6 % (42-52); HEMOGLOBIN 14.6 g/dL (14.0-18.0); MEAN CELL VOLUME 88.9 fL (80-100); MEAN CORPUSCULAR HEMOGLOBIN 30.5 pg (25-34); MEAN PLATELET VOLUME 10.1 fL (7.4-10.4); PLATELET COUNT 160 K/uL (130-400); RED CELL DISTRIBUTION WIDTH CV 13.6 % (11.5-14.5); RED CELL DISTRIBUTION WIDTH SD 44.2 fL (36.4-46.3); WHITE BLOOD COUNT 10.59 K/uL (4.8-10.8)
[2017-08-24 04:54] LABS: MEAN CORPUSCULAR HGB CONC 34.3 g/dl (32-36)
[2017-08-24 05:23] LABS: ALBUMIN 2.7 gm/dl (3.4-5.0); TOTAL PROTEIN 5.8 gm/dl (6.4-8.2)
[2017-08-24] MEDS: METOPROLOL SUCC 25MG EXT REL TAB PO SCH (08:32)
[2017-08-24] MEDS ORDERED: FUROSEMIDE 20 MG TAB PO SCH (09:00)
[2017-08-24] MEDS ORDERED: TPRSR25 PO (09:27)
[2017-08-24] MEDS ORDERED: LSX20 PO (09:27)
--- NOTE | 2017-08-24 09:28 | Discharge Instructions ---
Discharge Instructions Date of Service August 24, 2017. Admission Reason for Admission: A-Fib, Chf Discharge Discharge Diagnosis / Problem: heart failure from leaking heart valve Discharge Goals Goal(s): Diagnostic testing, Therapeutic intervention Activity Recommendations Activity Limitations: as noted below Lifting Limitations: gradually increase as tolerated . Instructions / Follow-Up Instructions / Follow-Up Call your Primary Care doctor if any of the following symptoms or problems start or get worse: * Shortness of breath or difficulty breathing * Wake up at night short of breath * Chest pain * Cough * Swelling of your hands, feet, or legs * More fatigued or tired with your normal activity * Palpitations - sudden fast heart beats WEIGHT * Weigh yourself every morning after using the bathroom. * Use the same scale. * Wear the same amount of clothing. * Write your weight down on a chart. * Call your Primary Care doctor if you gain more than 2-3 pounds in 1-2 days. MEDICATIONS * Use this discharge instruction sheet for medication instructions. * Take your medications at the time your doctor ordered. * Do not skip a dose of your medicines. * If you miss a dose of medicine, take it as soon as possible, but DO NOT DOUBLE A DOSE. * Read your medicine information when you get home. * Know all of the side effects of your medicine. If in doubt, ask your pharmacist * Call your Primary Care doctor's office if you have any side effects. * Be sure all of your doctors know what medicine and herbs you take (including cold, flu, and herbal medicine). Take the following with you to your follow-up doctor appointments: * Weight Chart * Medication List * List of questions Do not drink excessive alcohol, beer or wine. Current Hospital Diet Patient's current hospital diet: AHA Diet (Heart Healthy), Low Sodium Diet (2gm Na) Discharge Diet Recommended Diet: Low Sodium Diet (2gm Na) Pending Studies Studies pending at discharge: no Medical Emergencies . Who to Call and When: Call 911 or go to the Emergency Room if: * If at any time you feel your situation is an emergency * You have tightness or pain in your chest that does not go away with rest or Nitroglycerin * You are very short of breath even with rest . Non-Emergent Contact Non-Emergency issues call your: Primary Care Provider, Boarding Kennel Or Cattery Operator Call Non-Emergent contact if: temperature is above 101, your pain is unusual for you . . "Provider Documentation" section prepared by Alvarado Grubbs. .
--- NOTE | 2017-08-24 17:07 | Discharge Summary ---
Discharge Summary Date of Service August 24, 2017. Discharge Summary Admission Date: Aug 21, 2017 at 14:46 Discharge Date: August 24, 2017 Principal Diagnosis: afib RVR and acute diastolic heart failure Consultations: Dr Campbell Medication Reconciliation New Medications: Furosemide (Furosemide) 20 Mg Tab 20 MG PO QAM, #31 TAB 6 Refills Metoprolol Succinate (Metoprolol Succinate ER) 25 Mg Tabcr 25 MG PO QAM, #31 DOSE 6 Refills Continued Medications: Dextromethorphan-Guaifenesin (Coricidin Hbp Chest Conge) 1 Cap Cap 1 CAP PO UD PRN for CONGESTION Discharge Exam Review of Systems: Constitutional: + weakness, No fever, No chills Respiratory: No cough, No sputum, No shortness of breath, No dyspnea at rest Physical Exam: General Appearance: WD/WN, no apparent distress Respiratory/Chest: chest non-tender, lungs clear Cardiovascular: regular rate, rhythm, + systolic murmur Hospital Course 72M with intellectual impairment, history of blindness and Seizure disorder that is stable presents with acute diastolic heart failure secondary to valvular heart disease Acute respiratory failure w/ hypoxia, likely secondary to acute diastolic CHF- RESOLVED: - ECHO- preserved EF but significant MR Elevated BNP at 10,000 - PO Lasix 20 mg daily plus po metoprolol Afib,, family does not want full AC Consult cardiology, started Metoprolol 25 mg po daily will recommend outpt follow up for HF and Afib monitoring ?MELISSA: Recommend outpatient sleep study Hyponatremia, ?secondary to CHF- STABLE: - AM cortisol, urine sodium, urine potassium, urine/serum osmolality- reviewed Elevated LFTs, hepatic congestion- RESOLVING: LFTs- trending down, likely function of hepatic congestion on presentation, improved with lasix - Ammonia level- WNL- RUQ U/S- reviewed- small biliary sludge, fatty liver MR- STABLE: Aspiration precautions- mechanical soft diet h/o seizure disorder- STABLE currently on no medications- Documented By: Alvarado Grubbs Total Time Spent: Greater than 30 minutes This includes examination of the patient, discharge planning, medication reconciliation, and communication with other providers. Discharge Instructions Please refer to the electronic Patient Visit Report (Discharge Instructions) for additional information.
== END 2017-08-24 13:17 | disposition home or self-care (01) | DRG 291 ==
LOC: C.EDB 10:24 → C.2T 14:46 → EDBEDREQ 14:52 → ENRESERV 15:31
PROVIDERS: ADMIT Internal Medicine; ATTEND Internal Medicine
DX: I50.31 Acute diastolic (congestive) heart failure (principal); J96.01 Acute respiratory failure with hypoxia; E87.1 Hypo-osmolality and hyponatremia; I34.0 Nonrheumatic mitral (valve) insufficiency; I48.91 Unspecified atrial fibrillation; R62.7 Adult failure to thrive; G47.33 Obstructive sleep apnea (adult) (pediatric); K76.1 Chronic passive congestion of liver; K76.0 Fatty (change of) liver, not elsewhere classified; K83.8 Other specified diseases of biliary tract; F70 Mild intellectual disabilities; H54.8 Legal blindness, as defined in USA; Z51.81 Encounter for therapeutic drug level monitoring; Z86.69 Personal history of other diseases of the nervous system and sense organs; Z91.81 History of falling

== ENCOUNTER → 2017-09-09 | Outpatient (CLI) | payer OTHER ==
[~2017-09-09] MED LIST changes: +CMD3 PO; +FLM4 PO; -LEVE100S10 PO; +LSX40 PO; +Potassium Chloride Pwd PO; +SENN8.6T7 PO; +TPRSR25 PO
[2017-09-09 08:33] LABS: INR 2.3 (0.9-1.1)
== END ==
LOC: C.LABCC 07:41
PROVIDERS: ATTEND Internal Medicine
DX: I48.91 Unspecified atrial fibrillation (principal)

== ENCOUNTER → 2017-09-13 | Outpatient (CLI) | payer OTHER ==
[2017-09-13 09:05] LABS: INR 1.6 (0.9-1.1)
== END ==
LOC: C.LABCC 08:39
PROVIDERS: ATTEND Internal Medicine
DX: I48.91 Unspecified atrial fibrillation (principal)